=== PATIENT | male | born 1975 | race Caucasian/White ===

== ENCOUNTER 2017-01-29 22:52 | Emergency (ER) | payer BC ==
--- NOTE | 2017-01-29 23:12 | EDM.PDOC ---
ED HPI GENERAL MEDICAL PROBLEM - General Chief Complaint: Syncope Stated Complaint: SYNCOPE Time Seen by Provider: 01/29/17 23:12 - History of Present Illness INITIAL COMMENTS - FREE TEXT/NARRATIVE: 41-year-old male presents to the emergency room from labor and delivery area Patient's is in labor and when she was getting her epidural the patient became sweaty then he doesn't remember what happened next a the ground fell over backwards striking his head on the floor. Initially the patient had some numbness and tingling in his right hand this has since resolved the back of his head is little sore. Patient was placed in full C-spine immobilization. Patient' s past medical history is unremarkable he has no history of syncopal or vasovagal type reactions. Posterior Head Pain Score (Numeric/FACES): 2 - Related Data Allergies Allergy/AdvReac Type Severity Reaction Status Date / Time No Known Allergies Allergy Verified 01/29/17 23:11 Home Meds: Home Meds . [No Known Home Meds] 01/29/17 [History] ED ROS GENERAL - Review of Systems Review Of Systems: See Below Constitutional: Reports: No Symptoms HEENT: Reports: No Symptoms Respiratory: Reports: No Symptoms Cardiovascular: Reports: No Symptoms GI/Abdominal: Reports: No Symptoms Musculoskeletal: Reports: Neck Pain Skin: Reports: No Symptoms Neurological: Reports: Headache, Numbness Psychiatric: Reports: No Symptoms - Physical Exam Exam: See Below Exam Limited By: No Limitations General Appearance: Alert, No Apparent Distress, Other (Patient is in full C- spine immobilization he was removed from the backboard shortly after arrival to the emergency room) Eye Exam: Bilateral Eye: EOMI, Normal Inspection, PERRL Ears: Normal External Exam, Normal Canal, Normal TMs Nose: Normal Inspection, Normal Mucosa, No Blood Throat/Mouth: Normal Inspection, Normal Lips, Normal Teeth, Normal Gums, Normal Oropharynx, Normal Voice, No Airway Compromise Head Exam: Other (He has some posterior scalp discomfort no crepitation or deformity) Neck: Normal Inspection, Supple, Full Range of Motion, Other (C-spine exam done after obtaining a normal neck CT). No: Lymphadenopathy (L), Lymphadenopathy (R) Respiratory/Chest: No Respiratory Distress, Lungs Clear, Normal Breath Sounds Cardiovascular: Regular Rate, Rhythm, No Edema, No Murmur GI/Abdominal: Normal Bowel Sounds, Soft, Non-Tender Neuro Exam (Abbreviated): Alert, Oriented, CN II-XII Intact, Normal Cognition, No Motor/Sensory Deficits Course - Vital Signs Last Recorded V/S: Last Vital Signs Temp 36.1 C 01/29/17 23:11 Pulse 50 L 01/29/17 23:11 Resp 14 01/29/17 23:11 BP 134/71 01/29/17 23:11 Pulse Ox 99 01/29/17 23:11 - Orders/Labs/Meds Orders: Active Orders 24 hr Category Date Time Status EKG Documentation Completion [RC] STAT Care 01/29/17 23:21 Active Cervical Spine wo Cont [CT] Stat Exams 01/29/17 23:21 Taken Head wo Cont [CT] Stat Exams 01/29/17 23:21 Taken - Re-Assessments/Exams Free Text/Narrative Re-Assessment/Exam: 01/30/17 00:25 Upon arrival patient was gently log rolled off the backboard backboard was removed back to not demonstrate any step-off deformities or areas of tenderness he had some intermittent numbness in his right hand c-collar was left in place as the patient was ready to go to imaging. Head and cervical spine CTs were unrevealing for acute change patient had his c-collar removed and demonstrated unrestricted pain-free range of motion. Departure - Departure Time of Disposition: 00:16 Disposition: Home, Self-Care 01 Clinical Impression: Vasovagal syncope - Discharge Information Referrals: PCP,None [Primary Care Provider] - Forms: ED Department Discharge Additional Instructions: Return to the emergency room with any questions or problems or worsening symptoms. He sustained a head injury. Get as much sleep as you need this evening however be awoken every hour and a half to 2 hours to ensure normal behavior and activity. You should be awoken frequently for the next 12 hours and then close observation for the following 12 hours. - My Orders Last 24 Hours: My Active Orders 01/29/17 23:21 EKG Documentation Completion [RC] STAT Cervical Spine wo Cont [CT] Stat Head wo Cont [CT] Stat - Assessment/Plan Last 24 Hours: My Active Orders 01/29/17 23:21 EKG Documentation Completion [RC] STAT Cervical Spine wo Cont [CT] Stat Head wo Cont [CT] Stat
[2017-01-29 23:19] VITALS: BP 134/71
--- NOTE | 2017-01-30 09:36 | CT ---
Head CT Technique: Multiple axial sections through the brain were obtained. Intravenous contrast was not utilized. Comparison: No previous intracranial imaging. Findings: Ventricles along with basal cisterns and sulci over the convexities are within normal limits for the patient's age. No abnormal parenchymal densities are seen. No evidence of intracranial hemorrhage. No midline shift or mass effect is seen. Bone window settings were reviewed which show the visualized sinuses to have minimal mucosal thickening within the anterior left ethmoid sinus which is incidental. No acute calvarial abnormality is seen. Impression: 1. Minimal mucosal thickening within left ethmoid sinus which is incidental. 2. No acute intracranial abnormality is identified on noncontrast head CT study. Diagnostic code #2 Agree with preliminary report issued by [employer] ([facility] preliminary report dictated on 01/30/17, 1:08 AM Central Time)
--- NOTE | 2017-01-30 09:36 | CT ---
CT cervical spine Technique: Multiple axial sections were obtained from above C1 through the inferior T2 level. More inferior portions of the cervical spine not optimally seen due to photon attenuation from patient body habitus. Comparison: No previous cervical spine imaging. Findings: C5 disc is mildly narrowed. Posterior osteophytes noted at C4-C5, C5-C6 and C6-C7. Degenerative spurring noted within the uncovertebral joints at C3-C4 on the left side and bilaterally at C4-C5 which is more prominent on the left side. Vertebral bodies and posterior arches are intact with no fracture being seen. Very slight left-sided neural foraminal stenosis noted at C5-C6. Moderate left-sided neural foraminal stenosis noted C4-C5. No bony central canal stenosis is seen. Slightly abnormal cervical curvature is seen which is felt to be due to degenerative change. No abnormal subluxation is seen. Impression: 1. Degenerative change as described above. 2. Nothing acute is appreciated on CT study of the cervical spine. Diagnostic code #2 Agree with preliminary report issued by [employer] ([facility] preliminary report dictated on 01/30/17, 1:10 AM Central Time)
== END 2017-01-30 00:30 | disposition home or self-care (01) ==
LOC: JD.ED 22:52
DX: R55 Syncope and collapse (principal)
CPT/HCPCS: 70450; 70450-26; 72125; 72125-26; 93005; 99284; 99284-25

== ENCOUNTER 2019-02-10 11:01 | Day surgery (SDC) | payer BC ==
[2019-02-10] MEDS ORDERED: HYDROmorphone 1 MG/ML Syringe IVPUSH STA (11:47)
[2019-02-10] MEDS ORDERED: Ondansetron 4 MG/2 ML SDV IVPUSH ONE (11:47)
[2019-02-10] MEDS ORDERED: Sodium Chloride 0.9% 1,000 ML IV SCH (12:00)
[2019-02-10] MEDS ORDERED: Iopamidol 612 MG/ML 100 ML Bottle IVPUSH ONE (12:32)
[2019-02-10] MEDS ORDERED: Diatrizoate Meglumine/Diatrizoate Sodium 37% 120 ML Bottle PO ONE (12:32)
[2019-02-10] MEDS ORDERED: Sodium Chloride 0.9% 10 ML Syringe FLUSH PRN (12:32)
--- NOTE | 2019-02-10 12:35 | EDM.PDOC ---
ED HPI GENERAL MEDICAL PROBLEM - General Chief Complaint: Abdominal Pain Stated Complaint: R SIDE ABDOMINAL Time Seen by Provider: 02/10/19 11:25 Source of Information: Reports: Patient, RN Notes Reviewed History Limitations: Reports: No Limitations - History of Present Illness INITIAL COMMENTS - FREE TEXT/NARRATIVE: Patient is a 43-year-old male who presents to the ED for evaluation of right lower quadrant pain. The patient notes that this pain started suddenly this morning. He has had some associated vomiting and diarrhea with this. The patient notes that the pain is sharp and does radiate to his back. The patient denies any sort of abdominal surgeries. He states that the pain is there all the time. The patient notes he has not felt any sort of pain like this prior. He has not had any fevers or chills, and was feeling well up until the pain started this morning. He denies any further history of kidney stones, IBS or diverticulitis. He would rate his pain at an 8 out of 10, and does say this sort of radiates to his lower back as well. The patient denies any chest pain or shortness of breath. Right Lower Abdomen Pain Score (Numeric/FACES): 8 - Related Data Allergies Allergy/AdvReac Type Severity Reaction Status Date / Time No Known Allergies Allergy Verified 02/10/19 11:14 Home Meds: Home Meds . [No Known Home Meds] 01/29/17 [History] Past Medical History - Past Health History Medical/Surgical History: Denies Medical/Surgical History - Past Surgical History HEENT Surgical History: Reports: Tonsillectomy Musculoskeletal Surgical History: Reports: Arthroscopic Knee Social & Family History - Family History Family Medical History: Noncontributory - Tobacco Use Smoking Status *Q: Never Smoker - Caffeine Use Caffeine Use: Reports: None - Recreational Drug Use Recreational Drug Use: No ED ROS GENERAL - Review of Systems Review Of Systems: See Below Constitutional: Denies: Fever, Chills, Malaise HEENT: Reports: No Symptoms Respiratory: Reports: No Symptoms Cardiovascular: Reports: No Symptoms Endocrine: Reports: No Symptoms GI/Abdominal: Reports: Abdominal Pain (RLQ), Diarrhea, Nausea, Vomiting : Reports: No Symptoms Musculoskeletal: Reports: No Symptoms Skin: Reports: No Symptoms Neurological: Reports: No Symptoms Psychiatric: Reports: No Symptoms Hematologic/Lymphatic: Reports: No Symptoms Immunologic: Reports: No Symptoms ED EXAM, GI/ABD - Physical Exam Exam: See Below Exam Limited By: No Limitations General Appearance: Alert, WD/WN, No Apparent Distress (pt is mildy diaphoretic and appears to be uncomfortable on ED cot) Eyes: Bilateral: Normal Appearance Ears: Normal External Exam Nose: Normal Inspection Throat/Mouth: Normal Inspection, Normal Lips, Normal Teeth, Normal Gums, Normal Oropharynx, Normal Voice, No Airway Compromise Head: Atraumatic, Normocephalic Neck: Normal Inspection Respiratory/Chest: No Respiratory Distress, Lungs Clear, Normal Breath Sounds, No Accessory Muscle Use, Chest Non-Tender Cardiovascular: Normal Peripheral Pulses, Regular Rate, Rhythm, No Murmur GI/Abdominal Exam: Normal Bowel Sounds, Soft, No Distention, No Mass, Guarding, Tender (RLQ with deep palpation). No: Rigid, Rebound Extremities: Normal Inspection, Normal Capillary Refill Neurological: Alert, Oriented, Normal Cognition, Normal Gait, No Motor/Sensory Deficits Psychiatric: Normal Affect, Normal Mood Skin Exam: Warm, Dry, Intact, Normal Color, No Rash, Diaphoretic (mildly) Course - Vital Signs Last Recorded V/S: Last Vital Signs Temp 98.4 F 02/10/19 11:14 Pulse 86 02/10/19 11:14 Resp 18 02/10/19 11:14 BP 158/98 H 02/10/19 11:14 Pulse Ox 100 02/10/19 11:14 - Orders/Labs/Meds Orders: Active Orders 24 hr Category Date Time Status UA W/MICROSCOPIC [URIN] Stat Lab 02/10/19 11:47 Ordered Sodium Chloride 0.9% [Normal Saline] 1,000 ml Med 02/10/19 12:00 Ordered IV ASDIRECTED Sodium Chloride 0.9% [Saline Flush] Med 02/10/19 12:32 Active 10 ml FLUSH ONETIME PRN Medication Orders Sodium Chloride (Normal Saline) 1,000 mls @ 500 mls/hr IV ASDIRECTED TUNDE Last Admin: 02/10/19 11:57 Dose: 500 mls/hr Sodium Chloride (Saline Flush) 10 ml FLUSH ONETIME PRN PRN Reason: IV FLUSH Last Admin: 02/10/19 13:03 Dose: 10 ml Labs: Laboratory Tests 02/10/19 02/10/19 Range/Units 12:16 12:16 WBC 19.24 H (4.23-9.07) K/mm3 RBC 4.92 (4.63-6.08) M/mm3 Hgb 15.5 (13.7-17.5) gm/L Hct 45.4 (40.1-51.0) % MCV 92.3 H (79.0-92.2) fl MCH 31.5 (25.7-32.2) pg MCHC 34.1 (32.2-35.5) g/dl RDW Std Deviation 43.5 (35.1-43.9) fL Plt Count 214 (163-337) K/mm3 MPV 9.5 (9.4-12.3) fl Neutrophils % (Manual) 80 H (40-60) % Band Neutrophils % 1 (0-10) % Lymphocytes % (Manual) 11 L (20-40) % Atypical Lymphs % 0 % Monocytes % (Manual) 7 (2-10) % Eosinophils % (Manual) 0 L (0.8-7.0) % Basophils % (Manual) 1 (0.2-1.2) Platelet Estimate Adequate RBC Morph Comment Normal Sodium 138 (136-145) mEq/L Potassium 4.0 (3.5-5.1) mEq/L Chloride 104 (98-107) mEq/L Carbon Dioxide 27 (21-32) mEq/L Anion Gap 11.0 (5-15) BUN 16 (7-18) mg/dL Creatinine 1.3 (0.7-1.3) mg/dL Est Cr Clr Drug Dosing 86.94 mL/min Estimated GFR (MDRD) > 60 (>60) mL/min BUN/Creatinine Ratio 12.3 L (14-18) Glucose 137 H (74-106) mg/dL Calcium 8.6 (8.5-10.1) mg/dL Total Bilirubin 0.3 (0.2-1.0) mg/dL AST 36 (15-37) U/L ALT 51 (16-63) U/L Alkaline Phosphatase 66 (46-116) U/L Total Protein 6.8 (6.4-8.2) g/dl Albumin 3.8 (3.4-5.0) g/dl Globulin 3.0 gm/dL Albumin/Globulin Ratio 1.3 (1-2) Meds: Medications Generic Name Dose Route Start Last Admin Trade Name Jeffrey PRN Reason Stop Dose Admin Sodium Chloride 1,000 mls @ 500 mls/hr 02/10/19 12:00 02/10/19 11:57 Normal Saline IV 500 mls/hr ASDIRECTED TUNDE Administration Sodium Chloride 10 ml 02/10/19 12:32 02/10/19 13:03 Saline Flush FLUSH 10 ml ONETIME PRN Administration IV FLUSH Discontinued Medications Generic Name Dose Route Start Last Admin Trade Name Freq PRN Reason Stop Dose Admin Diatrizoate Meglum/Diatrizoate Sod 120 ml 02/10/19 12:32 02/10/19 13:03 Gastrografin 37% PO 02/10/19 12:33 90 ml ONETIME ONE Administration Hydromorphone HCl 0.5 mg 02/10/19 11:47 02/10/19 11:56 Dilaudid IVPUSH 02/10/19 11:48 0.5 mg ONETIME STA Administration Iopamidol 100 ml 02/10/19 12:32 02/10/19 13:03 Isovue-300 (61%) IVPUSH 02/10/19 12:33 100 ml ONETIME ONE Administration Ondansetron HCl 4 mg 02/10/19 11:47 02/10/19 11:55 Zofran IVPUSH 02/10/19 11:48 4 mg ONETIME ONE Administration - Re-Assessments/Exams Free Text/Narrative Re-Assessment/Exam: 02/10/19 12:34 Patient presents to the ED for evaluation of right lower quadrant pain. I have ordered an IV be placed and IV fluids, 4 mg IV Zofran, 0.5 mg IV Dilaudid for initial nausea and pain relief, a CBC, CMP, UA, and an abdominal CT for further evaluation. 02/10/19 13:57 Patient's laboratory evaluation and CT scan are done, his white blood cell count is elevated at 19,000, and the CT scan demonstrates findings which are compatible with early appendicitis with a slightly prominent in size appendix. Will call and consult general surgery for possible removal at this time. Departure - Departure Time of Disposition: 14:03 Disposition: DC/Tfer to [facility] Condition: Fair Clinical Impression: Appendicitis Qualifiers: Appendicitis type: acute appendicitis Acute appendicitis type: with localized peritonitis Appendicitis gangrene presence: without gangrene Appendicitis perforation presence: without perforation Appendicitis abscess presence: without abscess Qualified Code(s): K35.30 - Acute appendicitis with localized peritonitis, without perforation or gangrene - Discharge Information *PRESCRIPTION DRUG MONITORING PROGRAM REVIEWED*: No *COPY OF PRESCRIPTION DRUG MONITORING REPORT IN PATIENT RAFAT: No Referrals: Dominic Doyle Jr, MD [Primary Care Provider] - Forms: ED Department Discharge - My Orders Last 24 Hours: My Active Orders 02/10/19 11:47 UA W/MICROSCOPIC [URIN] Stat 02/10/19 12:00 Sodium Chloride 0.9% [Normal Saline] 1,000 ml IV ASDIRECTED 02/10/19 12:32 Sodium Chloride 0.9% [Saline Flush] 10 ml FLUSH ONETIME PRN - Assessment/Plan Last 24 Hours: My Active Orders 02/10/19 11:47 UA W/MICROSCOPIC [URIN] Stat 02/10/19 12:00 Sodium Chloride 0.9% [Normal Saline] 1,000 ml IV ASDIRECTED 02/10/19 12:32 Sodium Chloride 0.9% [Saline Flush] 10 ml FLUSH ONETIME PRN
--- NOTE | 2019-02-10 13:40 | CT ---
CT abdomen and pelvis Technique: Multiple axial sections were obtained from above the dome of the diaphragm inferiorly through the pubic symphysis. Intravenous and oral contrast was utilized. Delayed images were obtained through the bladder. Findings: Appendix is slightly prominent in size. Very mild inflammatory change is seen around the appendix. Findings are felt compatible with early appendicitis. Small portion of the visualized lung bases show nothing acute. Liver contains no focal abnormality. Gallbladder shows no calcified gallstones. Spleen appears within normal limits. Minimal hiatal hernia is present. Adrenal glands show no nodule. Kidneys show symmetric contrast enhancement without hydronephrosis or mass. Small cyst is noted within the upper left kidney measuring 8 mm. Pancreas is normal. Aorta shows no aneurysm. No retroperitoneal adenopathy or mesenteric abnormalities are seen. No pelvic mass or adenopathy is identified. Contrast noted within distal ureters and bladder. 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 Mild disc space narrowing is noted at L5-S1. Mild degenerative apophyseal change is noted at L5-S1. Impression: 1. Findings which are felt compatible with early appendicitis. 2. Other incidental findings. Diagnostic code #5
[2019-02-10] MEDS ORDERED: Bupivacaine 0.5% 30 ML SDV ONE (15:13)
[2019-02-10] MEDS ORDERED: Rocuronium 50 MG/5 ML Vial ONE (15:14)
[2019-02-10] MEDS ORDERED: Ondansetron 4 MG/2 ML SDV ONE (15:14)
[2019-02-10] MEDS ORDERED: Propofol 200 MG/20 ML SDV ONE (15:15)
[2019-02-10] MEDS ORDERED: Midazolam 1 MG/ML 2 ML SDV ONE (15:15)
[2019-02-10] MEDS ORDERED: Lidocaine 1% 4 ML ONE (15:15)
[2019-02-10] MEDS ORDERED: fentaNYL 250 MCG/5 ML SDV ONE (15:15)
--- NOTE | 2019-02-10 15:20 | PCM.PREANE ---
Preanesthetic Assessment - Anesthesia/Transfusion/Family Hx Anesthesia History: Prior Anesthesia Reaction Type of Anesthesia Reaction: Excessive Nausea/Vomiting (with any pain medicine, IV dilaudid made him vomit in the ED today ) Family History of Anesthesia Reaction: No Transfusion History: No Prior Transfusion(s) Intubation History: Unknown - Review of Systems General: Fever Pulmonary: No Symptoms Cardiovascular: No Symptoms Gastrointestinal: Abdominal Pain, Decreased Appetite, Nausea, Vomiting Neurological: Numbness (left side finger and thumb numbness after KIRIT on 12/24/18 ) Other: Reports: None, Anxiety - Physical Assessment NPO Status Date: 02/10/19 NPO Status Time: 09:00 O2 Sat by Pulse Oximetry: 100 Respiratory Rate: 18 Vital Signs: Last Vital Signs Temp 36.9 C 02/10/19 11:14 Pulse 86 02/10/19 11:14 Resp 18 02/10/19 11:14 BP 158/98 H 02/10/19 11:14 Pulse Ox 100 02/10/19 11:14 Height: 1.88 m Weight: 108.862 kg ASA Class: 2 Mental Status: Alert & Oriented x3 Airway Class: Mallampati = 3 Dentition: Reports: Normal Dentition Thyro-Mental Finger Breadths: 2 Mouth Opening Finger Breadths: 4 ROM/Head Extension: Limited/Partial (stiffness with neck pain, has been an issue for patient since herniated disks 2017) - Lab Values: Laboratory Last Values WBC 19.24 K/mm3 (4.23-9.07) H 02/10/19 12:16 RBC 4.92 M/mm3 (4.63-6.08) 02/10/19 12:16 Hgb 15.5 gm/L (13.7-17.5) 02/10/19 12:16 Hct 45.4 % (40.1-51.0) 02/10/19 12:16 MCV 92.3 fl (79.0-92.2) H 02/10/19 12:16 MCH 31.5 pg (25.7-32.2) 02/10/19 12:16 MCHC 34.1 g/dl (32.2-35.5) 02/10/19 12:16 RDW Std Deviation 43.5 fL (35.1-43.9) 02/10/19 12:16 Plt Count 214 K/mm3 (163-337) 02/10/19 12:16 MPV 9.5 fl (9.4-12.3) 02/10/19 12:16 Neutrophils % (Manual) 80 % (40-60) H 02/10/19 12:16 Band Neutrophils % 1 % (0-10) 02/10/19 12:16 Lymphocytes % (Manual) 11 % (20-40) L 02/10/19 12:16 Atypical Lymphs % 0 % 02/10/19 12:16 Monocytes % (Manual) 7 % (2-10) 02/10/19 12:16 Eosinophils % (Manual) 0 % (0.8-7.0) L 02/10/19 12:16 Basophils % (Manual) 1 (0.2-1.2) 02/10/19 12:16 Platelet Estimate Adequate 02/10/19 12:16 RBC Morph Comment Normal 02/10/19 12:16 Sodium 138 mEq/L (136-145) 02/10/19 12:16 Potassium 4.0 mEq/L (3.5-5.1) 02/10/19 12:16 Chloride 104 mEq/L (98-107) 02/10/19 12:16 Carbon Dioxide 27 mEq/L (21-32) 02/10/19 12:16 Anion Gap 11.0 (5-15) 02/10/19 12:16 BUN 16 mg/dL (7-18) 02/10/19 12:16 Creatinine 1.3 mg/dL (0.7-1.3) 02/10/19 12:16 Est Cr Clr Drug Dosing 86.94 mL/min 02/10/19 12:16 Estimated GFR (MDRD) > 60 mL/min (>60) 02/10/19 12:16 BUN/Creatinine Ratio 12.3 (14-18) L 02/10/19 12:16 Glucose 137 mg/dL (74-106) H 02/10/19 12:16 Calcium 8.6 mg/dL (8.5-10.1) 02/10/19 12:16 Total Bilirubin 0.3 mg/dL (0.2-1.0) 02/10/19 12:16 AST 36 U/L (15-37) 02/10/19 12:16 ALT 51 U/L (16-63) 02/10/19 12:16 Alkaline Phosphatase 66 U/L (46-116) 02/10/19 12:16 Total Protein 6.8 g/dl (6.4-8.2) 02/10/19 12:16 Albumin 3.8 g/dl (3.4-5.0) 02/10/19 12:16 Globulin 3.0 gm/dL 02/10/19 12:16 Albumin/Globulin Ratio 1.3 (1-2) 02/10/19 12:16 Urine Color Yellow (Yellow) 02/10/19 13:35 Urine Appearance Clear (Clear) 02/10/19 13:35 Urine pH 8.5 (5.0-8.0) H 02/10/19 13:35 Ur Specific [place] 1.015 (1.005-1.030) 02/10/19 13:35 Urine Protein Trace (Negative) H 02/10/19 13:35 Urine Glucose (UA) Negative (Negative) 02/10/19 13:35 Urine Ketones Negative (Negative) 02/10/19 13:35 Urine Occult Blood Negative (Negative) 02/10/19 13:35 Urine Nitrite Negative (Negative) 02/10/19 13:35 Urine Bilirubin Negative (Negative) 02/10/19 13:35 Urine Urobilinogen 0.2 (0.2-1.0) 02/10/19 13:35 Ur Leukocyte Esterase Negative (Negative) 02/10/19 13:35 Urine RBC Not seen /hpf (0-5) 02/10/19 13:35 Urine WBC 0-5 /hpf (0-5) 02/10/19 13:35 Ur Epithelial Cells 0-5 /hpf (0-5) 02/10/19 13:35 Urine Bacteria Not seen /hpf (FEW) 02/10/19 13:35 Urine Mucus Not seen /hpf (FEW) 02/10/19 13:35 - Allergies Allergies/Adverse Reactions: Allergies Allergy/AdvReac Type Severity Reaction Status Date / Time No Known Allergies Allergy Verified 02/10/19 11:14 - Blood Blood Available: No - Anesthesia Plan Pre-Op Medication Ordered: None - Acknowledgements Anesthesia Type Planned: General Anesthesia, MAC Pt an Appropriate Candidate for the Planned Anesthesia: Yes Alternatives and Risks of Anesthesia Discussed w Pt/Guardian: Yes Pt/Guardian Understands and Agrees with Anesthesia Plan: Yes PreAnesthesia Questionnaire - Past Health History Medical/Surgical History: Denies Medical/Surgical History - Past Surgical History HEENT Surgical History: Reports: Tonsillectomy Musculoskeletal Surgical History: Reports: Arthroscopic Knee - SUBSTANCE USE Smoking Status *Q: Never Smoker Days Per Week of Alcohol Use: 1 Recreational Drug Use History: No - HOME MEDS Home Medications: Home Meds . [No Known Home Meds] 01/29/17 [History] - CURRENT (IN HOUSE) MEDS Current Meds: Current Medications Sodium Chloride (Normal Saline) 1,000 mls @ 500 mls/hr IV ASDIRECTED TUNDE Last Admin: 02/10/19 11:57 Dose: 500 mls/hr Sodium Chloride (Saline Flush) 10 ml FLUSH ONETIME PRN PRN Reason: IV FLUSH Last Admin: 02/10/19 13:03 Dose: 10 ml Discontinued Medications Diatrizoate Meglum/Diatrizoate Sod (Gastrografin 37%) 120 ml PO ONETIME ONE Stop: 02/10/19 12:33 Last Admin: 02/10/19 13:03 Dose: 90 ml Hydromorphone HCl (Dilaudid) 0.5 mg IVPUSH ONETIME STA Stop: 02/10/19 11:48 Last Admin: 02/10/19 11:56 Dose: 0.5 mg Iopamidol (Isovue-300 (61%)) 100 ml IVPUSH ONETIME ONE Stop: 02/10/19 12:33 Last Admin: 02/10/19 13:03 Dose: 100 ml Ondansetron HCl (Zofran) 4 mg IVPUSH ONETIME ONE Stop: 02/10/19 11:48 Last Admin: 02/10/19 11:55 Dose: 4 mg
[2019-02-10] MEDS ORDERED: Lactated Ringers 1,000 ML ONE ×2 (15:37→16:16)
[2019-02-10] MEDS ORDERED: cefOXitin 100 ML ONE (15:47)
[2019-02-10] MEDS ORDERED: Ketorolac 30 MG/ML SDV ONE (16:04)
--- NOTE | 2019-02-10 16:42 | PCM.POSTAN ---
POST ANESTHESIA ASSESSMENT - MENTAL STATUS Mental Status: Alert, Oriented - VITAL SIGNS Pulse Rate: 87 SaO2: 96 Resp Rate: 17 Blood Pressure: 157/79 Temperature: 36.9 C - RESPIRATORY Respiratory Status: Respiratory Rate WNL, Airway Patent, O2 Saturation Stable, Supplemental Oxygen - CARDIOVASCULAR CV Status: Pulse Rate WNL, Blood Pressure Stable - GASTROINTESTINAL GI Status: No Symptoms - PAIN Pain Score: 1 - POST OP HYDRATION Hydration Status: Adequate & Stable - OBSERVATIONS Free Text/Narrative:: no anesthesia complications noted
[2019-02-10 18:15] VITALS: BP 154/78
--- NOTE | 2019-02-11 08:32 | HP ---
DATE OF ADMISSION: 02/10/2019 CHIEF COMPLAINT: Acute appendicitis. 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 He said it woke him up from sleep this morning. He tolerated the pain for some time. He actually went to work. He then had worsening nausea associated with multiple episodes of emesis. He tolerated some breakfast this morning and a small amount of yogurt around 9 a.m. but then this promptly came up. He also mentioned he had some associated diarrhea. He has had no prior episodes except for some mild occasional crampy generalized abdominal pain. He denies any fever or chills. His pain is rated 8/10 in intensity. He says he feels better in a standing position and position. Denies any shortness of breath or chest pain. PAST MEDICAL HISTORY: Degenerative disk disease, joint and neck pain. PAST SURGICAL HISTORY: He has had a tonsillectomy and arthroscopic knee surgery. He has also had cortisone injections into his neck to treat chronic neck pain. ALLERGIES TO MEDICATIONS: None. CURRENT MEDICATIONS: Medications at home, none. SUBSTANCE HISTORY: Denies alcohol abuse. Denies illicit drugs. He has never smoked cigarettes. FAMILY HISTORY: Unremarkable. SOCIAL HISTORY: He works in IT as a manager inventory management. REVIEW OF SYSTEMS: A 10-system review demonstrates some arthropathies, neck pain. He also reports syncopal episodes surrounding needles. Otherwise, 10-system review is negative except for that listed above. PHYSICAL EXAMINATION: GENERAL: He is an alert, nontoxic appearing, in no apparent distress. VITAL SIGNS: Temperature 98.4, pulse 86, respiration 18, blood pressure 158/98, saturating 100% on room air. HEAD: Normocephalic, atraumatic. NECK: Supple. No masses. No carotid bruits. HEART: Regular rate and rhythm. No clicks, murmurs, or rubs. LUNGS: Clear to auscultation bilaterally. No wheezes, rhonchi, or rales. ABDOMEN: Soft. He has exquisite tenderness in the right lower quadrant with a positive Rovsing sign. He has some guarding in the right lower quadrant as well. There is no generalized guarding. No palpable masses. He has a mildly resonant note to percussion. EXTREMITIES: No clubbing, cyanosis, or edema. No calf tenderness. NEUROLOGIC: Cranial nerves are grossly intact. His sensation and movement are preserved in all 4 extremities. PSYCHIATRIC: He has appropriate affect and demeanor with linear thought. INTEGUMENT: No rashes. No jaundice. No petechiae. No lesions. LABORATORY DATA: Demonstrated a profound leukocytosis with a left shift. Chemistries; BUN and creatinine ratio is 12.3, glucose 137. The remainder of his chemistries are unremarkable. Urine is unremarkable. CT scan showed an enhancing dilated appendix with periappendiceal fat stranding consistent with an acute appendicitis though early. There is no evidence of perforation. ASSESSMENT: Acute appendicitis. PLAN: I have discussed with him at length the options including conservative management. He is not interested in conservative management. He would like his appendix out today, so he is not pertinent with the potential disease in the future. He was fully informed of the major risks, benefits, and alternatives. The risks include, but are not limited to perforation of the bowel, abscess formation, bleeding, reoperation, hernias of the port sites, and many others. He gave informed consent. MMODAL /[id number]
--- NOTE | 2019-02-11 08:32 | OR ---
DATE OF OPERATION: 02/10/2019 SURGEON: Andrew Alberto MD PREOPERATIVE DIAGNOSIS: Acute appendicitis. POSTOPERATIVE DIAGNOSIS: Acute nonperforated appendicitis with localized peritonitis. OPERATION PERFORMED: Laparoscopic appendectomy. ANESTHESIA: General with endotracheal intubation. FINDINGS: He had an acute suppurative appendicitis. There was no generalized peritonitis, but he did have some localized peritonitis at the site of the appendix. There was no evidence of perforation, and I found no abscess. No other pathology was identified. PATHOLOGY: Appendix. ESTIMATED BLOOD LOSS: Minimal. COMPLICATIONS: None. INDICATIONS: The patient is a 43-year-old male who presented to the ED with classic symptoms of acute appendicitis. This was confirmed on a CT scan. He had a significant leukocytosis of 19,000. He was offered a laparoscopic appendectomy. He was fully informed of the major risks, benefits, and alternatives. Please see the history and physical for documentation of that discussion. He gave informed consent to what was done. DESCRIPTION OF PROCEDURE: The patient was brought to the operating room and placed in supine position on the operating table. He was given general anesthesia and intubated. The abdomen was prepped and draped in usual sterile fashion. A Veress needle was inserted in the left upper quadrant. Insufflation was undertaken to a pressure of 15 mmHg with CO2 gas. I passed the 12 mm optical port in the left lower quadrant. I visualized the tissue planes as the port passed into the peritoneum. There was no contact to underlying bowel. I visualized the Veress needle up in the air in the left upper quadrant. There was no contact to underlying bowel there. The Veress was removed. The gas was switched to the existing port. Two additional 5 mm ports were passed, one in the umbilicus and one in the suprapubic region, both under direct laparoscopic visualization. A 30-degree 5 mm scope was used for the operative scope. I identified the appendix in its usual anatomic location. It was somewhat twisted around on itself. The mesoappendix was identified and a window was made in the mesoappendix with a [place] dissector. I passed a blue load linear cutter stapler across the base of the appendix and fired the stapler to create an intact staple line at the base of the appendix as it exited from the cecum. I then passed a white load vascular linear cutter stapler across the mesoappendix. There was some oozing from the mesoappendix, so surgical clips were applied to the stump of the mesoappendix for complete hemostasis. The appendix was placed in an EndoCatch bag and retrieved inside the port by removing the port with the bag intact. My gloves were changed. I then reinserted the port and continued the operation. A thorough careful examination of the pelvis found no purulence, but there was minimal amount of blood. This was up with a Ray-Jose. I also used the same technique in the right pericolic gutter. I inspected very carefully the staple lines and I found no bleeding. The cecum and terminal ileum were intact . All the instruments were removed. Survey of the abdomen found no other pathology. There was no fluid over the liver. At this point, the 0 Vicryl stitch was passed with a Segundo Mas suture passer across the 12 mm port site in a [id number] fashion without contact to underlying bowel under direct laparoscopic visualization. The camera was then removed. The gas was desufflated through the open ports and then the ports were removed. I tied that stitch to obliterate the fascial defect. Each of the incisions was reapproximated with 4-0 Monocryl suture material. Dermabond was applied for sterile barrier. He had no complications and tolerated the procedure well. He is awakened from anesthesia and moved to Recovery in stable condition. JORDAN /[id number]
== END 2019-02-10 18:25 | disposition home or self-care (01) ==
LOC: JD.ED 11:01 → JD.SDS 14:50
PROVIDERS: ATTEND Surgery
DX: K35.30 Acute appendicitis with localized peritonitis, without perforation or gangrene (principal); Z98.890 Other specified postprocedural states; M50.221 Other cervical disc displacement at C4-C5 level; M25.512 Pain in left shoulder; M54.2 Cervicalgia; M48.02 Spinal stenosis, cervical region; M48.04 Spinal stenosis, thoracic region
CPT/HCPCS: 36415; 44970; 72141; 74177; 80053; 81001; 85007; 85027; 96361; 96374; 96375; 99285; J0694; J1170; J1885; J2001; J2250; J2405; J2704; J3010; J3490; J7040; J7120; Q9963; Q9967; 00840